=== PATIENT | female | born 1950 | race Caucasian/White ===

== ENCOUNTER → 2016-12-13 | Outpatient (CLI) | payer BC ==
[~2016-12-13] MED LIST: ALDACTONE50 MG; ALLEGRA 180MG180 MG PO; HYZAAR 50-12.1 UDTAB; KLOR-CON M1010 MEQ; LASIX 40MG TABL40 MG; LORTAB 5/500 501 TAB; LYRICA 150MG C150 MG; NASAREL0.025 MG/1 NS; PERCOCET 325 MG1 TA2 PO; PROTONIX20 MG; REGLAN 5MG T5 MG/TAB; RITALIN 5MG5 MG/TAB; RT MAXAIR INH25.6 GM IH; ULTRAM 50MG TAB50 MG
== END ==
LOC: COL.RAD 08:54
DX: G20 Parkinson's disease (principal)
CPT/HCPCS: A9584

== ENCOUNTER → 2019-01-15 | Outpatient (CLI) | payer BC | LOC: COL.RAD 08:30 | DX: R13.10 Dysphagia, unspecified (principal) ==

== ENCOUNTER → 2019-02-09 | Outpatient (CLI) | payer BC | LOC: COL.RAD 09:29 | DX: R80.9 Proteinuria, unspecified (principal); R35.0 Frequency of micturition ==

== ENCOUNTER → 2019-03-11 | Outpatient (CLI) | payer BC | LOC: MC.RAD 14:15 | DX: Z12.31 Encounter for screening mammogram for malignant neoplasm of breast (principal) ==

== ENCOUNTER → 2020-06-20 | Outpatient (CLI) | payer BC | LOC: MC.RAD 14:38 | DX: Z12.31 Encounter for screening mammogram for malignant neoplasm of breast (principal); N63.21 Unspecified lump in the left breast, upper outer quadrant ==

== ENCOUNTER → 2020-06-27 | Outpatient (CLI) | payer BC | LOC: MC.RAD 14:00 | DX: N63.20 Unspecified lump in the left breast, unspecified quadrant (principal) ==

== ENCOUNTER 2020-11-09 15:00 | Outpatient (RCR) | payer BC | END 2020-11-16 16:18 | disposition home or self-care (01) | LOC: WSC 15:00 | DX: M54.2 Cervicalgia (principal); M25.511 Pain in right shoulder ==

== ENCOUNTER → 2021-02-19 | Outpatient (CLI) | payer MEDICARE, BC | LOC: MC.RAD 10:00 | DX: N63.20 Unspecified lump in the left breast, unspecified quadrant (principal) ==

== ENCOUNTER → 2023-04-29 | Outpatient (CLI) | payer MEDICARE, BC | LOC: COL.RAD 09:30 | DX: M16.0 Bilateral primary osteoarthritis of hip (principal); M51.36 Other intervertebral disc degeneration, lumbar region; M51.37 Other intervertebral disc degeneration, lumbosacral region; M48.061 Spinal stenosis, lumbar region without neurogenic claudication; M48.07 Spinal stenosis, lumbosacral region ==